=== PATIENT | female | born 1985 | race Two or more races ===

== ENCOUNTER → 2018-08-29 07:06 | Outpatient (CLI) | payer OTHER | END | disposition home or self-care (01) | LOC: LAB 07:06 | DX: Z34.82 Encounter for supervision of other normal pregnancy, second trimester (principal); Z11.4 Encounter for screening for human immunodeficiency virus [HIV] ==

== ENCOUNTER 2018-11-15 16:56 | Outpatient (CLI) | payer OTHER | END 2018-11-15 17:01 | disposition home or self-care (01) | LOC: LAB 16:56 | DX: Z34.83 Encounter for supervision of other normal pregnancy, third trimester (principal); Z11.4 Encounter for screening for human immunodeficiency virus [HIV] ==

== ENCOUNTER 2018-11-15 17:28 | Inpatient (IN) | payer OTHER ==
[~2018-11-15] VITALS: Ht 160 cm; Wt 68.5 kg
[2018-12-14] MEDS ORDERED: OBSTETRIX DHA1 EACH PO (10:26)
== END 2018-12-16 13:44 | DRG 807 ==
LOC: OB/GYN 12-12 15:00 → LDR 12-14 08:35 → OB/GYN 12-14 13:56
PROVIDERS: ADMIT Obstetrics & Gynecology
PROC: 10E0XZZ Delivery of Products of Conception, External Approach (ICD-10-PCS; principal; 2018-12-14)
PROC: 0HQ9XZZ Repair Perineum Skin, External Approach (ICD-10-PCS; 2018-12-14)
PROC: 4A1HXCZ Monitoring of Products of Conception, Cardiac Rate, External Approach (ICD-10-PCS; 2018-12-14)
DX: O70.0 First degree perineal laceration during delivery (principal); Z37.0 Single live birth; Z3A.40 40 weeks gestation of pregnancy

== ENCOUNTER 2018-12-10 15:12 | Outpatient (CLI) | payer OTHER | END 2018-12-10 16:16 | disposition home or self-care (01) | LOC: NST 15:12 | DX: Z34.83 Encounter for supervision of other normal pregnancy, third trimester (principal) ==

== ENCOUNTER 2018-12-12 11:14 | Outpatient (CLI) | payer OTHER | END 2018-12-12 12:15 | disposition home or self-care (01) | LOC: NST 11:14 | DX: Z34.83 Encounter for supervision of other normal pregnancy, third trimester (principal) ==

== ENCOUNTER 2020-09-23 13:30 | Inpatient (IN) | payer OTHER ==
[~2020-09-23] VITALS: Ht 160 cm; Wt 67.1 kg
[~2020-09-23 13:30] MED LIST: OBSTETRIX DHA1 EACH PO
== END 2020-10-04 14:27 | disposition home or self-care (01) | DRG 807 ==
LOC: LDR 10-02 07:25 → OB/GYN 10-02 16:17 → SURH 10-06 13:30
PROVIDERS: ADMIT Obstetrics & Gynecology; ATTEND Obstetrics & Gynecology
PROC: 10E0XZZ Delivery of Products of Conception, External Approach (ICD-10-PCS; principal; 2020-10-02)
PROC: 0HQ9XZZ Repair Perineum Skin, External Approach (ICD-10-PCS; 2020-10-02)
PROC: 4A1HXFZ Monitoring of Products of Conception, Cardiac Rhythm, External Approach (ICD-10-PCS; 2020-10-02)
DX: O70.0 First degree perineal laceration during delivery (principal); Z37.0 Single live birth; Z3A.39 39 weeks gestation of pregnancy; Z20.822 Contact with and (suspected) exposure to COVID-19